=== PATIENT | female | born 1975 | race Caucasian/White ===

== ENCOUNTER 2017-12-28 16:34 | Emergency (ER) | payer OTHER ==
[~2017-12-28] VITALS: Ht 152.4 cm; Wt 88.9 kg
[2017-12-28 18:56] LABS: BASOPHIL % 0.5 % (0-2); PLATELET COUNT 273 x10^3mcL (130-400); RED CELL DISTRIBUTION WIDTH 13.8 % (11.5-14.5)
[2017-12-28 19:14] LABS: CALCIUM 8.8 mg/dL (8.5-10.1); CHLORIDE SERUM 103 mmol/L (98-107); CREATININE SERUM 0.9 mg/dL (0.6-1.0); GFR1 > 60 mL/min; GLUCOSE SERUM 93 mg/dL (74-106); POTASSIUM SERUM 3.7 mmol/L (3.5-5.1); SODIUM SERUM 136 mmol/L (136-145)
[2017-12-28 19:19] LABS: ALBUMIN 3.4 g/dL (3.4-5.0); ALKALINE PHOSPHATASE 88 U/L (46-116); ALT/SGPT 87 U/L (14-59); AST/SGOT 44 U/L (15-37); BILIRUBIN TOTAL 0.2 mg/dL (0.20-1.00); TOTAL PROTEIN, SERUM 7.2 g/dL (6.4-8.2)
[2017-12-28 20:06] VITALS: BP 124/80
== END 2017-12-28 20:06 | disposition home or self-care (01) ==
LOC: ED 16:34
PROVIDERS: Emergency Medicine
DX: J40 Bronchitis, not specified as acute or chronic (principal)
CPT/HCPCS: 36415; J2405; J7030; Q0092

== ENCOUNTER 2018-11-25 21:55 | Inpatient (IN) | payer OTHER ==
[~2018-11-25] VITALS: Ht 152.4 cm; Wt 95.3 kg
[2018-11-25 22:17] VITALS: Ht 152.4 cm; Wt 95.3 kg
[2018-11-25 22:58] LABS: BASOPHIL % 0.4 % (0-2); PLATELET COUNT 266 x10^3mcL (130-400)
[2018-11-25 23:07] LABS: CALCIUM 8.6 mg/dL (8.5-10.1); CREATININE SERUM 1.1 mg/dL (0.6-1.0); POTASSIUM SERUM 4.1 mmol/L (3.5-5.1)
[2018-11-25 23:11] LABS: BILIRUBIN TOTAL 0.2 mg/dL (0.20-1.00); TOTAL PROTEIN, SERUM 6.7 g/dL (6.4-8.2)
[2018-11-25 23:12] LABS: ALBUMIN 3.2 g/dL (3.4-5.0)
--- NOTE | 2018-11-25 23:15 | NUR ---
PT SITTING UP IN BED, NO S/S OF DISTRESS NOTED. PT C/O EPIGASTRIC PAIN X 1 DAY. PT RATES PAIN 8/10 AND RADIATES TO SIDES. PT DENIES PAIN ON PALPATION. PT REPORTS NAUSEA AND DENIES VOMITING AND DIARRHEA. EKG IN PROGRESS AT BEDSIDE. PT ATTACHED TO FULL SKIP MINER, NSR, VSS.
--- NOTE | 2018-11-26 00:20 | NUR ---
PT C/O PAIN, NOTIFED DR GUNTER. ORDERS FOR FENTANYL PLACED IN EMAR. MEDICATE PT PER MD ORDERS, PT VERBALIZED UNDERSTANDING OF MEDICATION. PT ON MONITOR. PT IS AAOX4, NO DISTRESS NOTED, RESP E/U, WILL CONT TO MONITOR.
[2018-11-26 00:21] LABS: CHOLESTEROL/HDL RATIO 5.7; MAGNESIUM 1.8 mg/dL (1.8-2.4); PHOSPHOROUS 4.1 mg/dL (2.5-4.9)
--- NOTE | 2018-11-26 00:56 | NUR ---
REPORT GIVEN TO RON MEJÍA TO ASSUME CARE OF PT.
[2018-11-26 01:35] VITALS: BP 110/69
--- NOTE | 2018-11-26 01:42 | NUR ---
RECEIVED PT FROM ER, PT ADMIT FOR GALLSTONE/PANCREATITIS. PT IS A/O X4, VERBAL RESPONSIVE, ABLE TO TELL WHAT SHE NEEDS. LUNG SOUND CLEAR BILATERAL, NO COUGH, NO SOB, PT DENY ANY CHEST PAIN OR DISCOMFORT, BOWEL SOUND PRESENT ALL 4 QUADRANTS, NO DISTENTION, NO TENDER. PT C/O MID ABD PAIN 6/10, AND C/O NAUSEA. PEDAL PULSE PRESENT BOTH FEET, NO EDEMA, IV AT LEFT HAND, NO LEAKING, NO INFILTRATION. ALL ADLS ASSIST, ALL NEED MET, CALL LIGHT IN REACH, WILL CONTINUE TO MONITOR.
[2018-11-26 06:08] VITALS: BP 106/59
[2018-11-26 06:31] LABS: BASOPHIL % 0.3 % (0-2); PLATELET COUNT 255 x10^3mcL (130-400); RED CELL DISTRIBUTION WIDTH 14.5 % (11.5-14.5)
--- NOTE | 2018-11-26 06:37 | NUR ---
PT. C/O HEADACHE AND ABD. PAIN. PAIN LEVEL WORST TO UPPER EPIGASTRIC REGION, 6-7/10 PT. STATED THAT SHE WAS UNSURE ABOUR IF HER HUNGER HAD ANYTHING TO DO WITH HER HEADACHE. PRN NORCO GIVEN. IVF INFUSING WELL. PT. RECEIVED PRN ZOFRAN FOR NAUSEA BEFORE RECEIVING NORCE. CALL LIGHT WITHIN REACH. WILL ENDORSE PT CARE TO INCOMING NURSE
[2018-11-26 06:45] LABS: CALCIUM 8.2 mg/dL (8.5-10.1); CHLORIDE SERUM 104 mmol/L (98-107); GFR1 > 60 mL/min; GLUCOSE SERUM 95 mg/dL (74-106); LIPASE 612 IU/L (73-393); SODIUM SERUM 138 mmol/L (136-145)
--- NOTE | 2018-11-26 07:56 | NUR ---
HANDOFF REPORT RECEIVED. PATIENT AWAKE IN BED WITH NS AT 150CC/HR INFUSING PERIPHERALLY. DENIES ANY PAIN AT THIS TIME AFTER THE NORCO. INSTRUCTED TO CALL FOR RN FOR ANY NEED. CALL FALK WITHIN REACH
--- NOTE | 2018-11-26 09:00 | NUR ---
GTUBE RESIDUAL 80CC. FEEDING HELD AND WILL RECHECK.
[2018-11-26 09:03] VITALS: BP 104/43; BP 107/50
--- NOTE | 2018-11-26 11:47 | NUR ---
DAUGHTER KIRA HERE AND AWARE OF POSSIBLE DISCHARGE. GTUBE RESIDUAL ZERO. HOB AT 50 DEGREES.
--- NOTE | 2018-11-26 11:50 | NUR ---
NAUSEOUS. ZOFRAN 4MG IVP GIVEN. DENIES ABDOMINAL PAINS.
--- NOTE | 2018-11-26 12:22 | NUR ---
STATES FEELING BETTER AFTER THE ZOFRAN.
--- NOTE | 2018-11-26 18:40 | NUR ---
PER MD HOWARD, PATIENT WILL GO FOR LAPAROSCOPIC CHOLECYSTECTOMY AT 0830 AND WILL SEE PATIENT TOMORROW BEFORE THEN. PATIENT MADE AWARE. NPO MAINTAINED.
--- NOTE | 2018-11-26 19:14 | NUR ---
HANDOFF REPORT GIVEN TO LAKSHMI DE LA TORRE.
--- NOTE | 2018-11-26 20:00 | NUR ---
RECEIVED PT IN BED, A/O X4. DENIES HEADACHE/DIZZINESS.RESP. EVEN AND UNLABORED. ON ROOM AIR, NO ACUTE DISTRESS NOTED. AFEBRILE AND VITAL SIGNS STABLE. ABD. SOFT , NON DISTENDED, BS ACTIVE, NO N/V NOTED. NPO ORDERED. IVF, NS AT 150ML/HR, INTACT AND INFUSING VIA LT HAND, SITE CLEAR . AMBULATORY. VOIDING FREELY. CALL LIGHT WITHIN REACH. WILL CONTINUE TO MONITOR.
[2018-11-26 20:11] VITALS: BP 109/73
--- NOTE | 2018-11-26 21:00 | NUR ---
COMPLAINED OF ABD. PAIN, 5/10, MEDICATED WITH NORCO PO ORDERED. WILL CONTINUE TO MONITOR.
--- NOTE | 2018-11-26 22:40 | NUR ---
RESTING QUIETLY. PT STATES PAIN RELIEF. WILL CONTINUE TO MONITOR.
--- NOTE | 2018-11-26 23:45 | NUR ---
RESTING IN BED WITH EYES CLOSED, APPEARS ASLEEP, EASILY AROUSABLE . NO ACUTE DISTRESS NOTED. WILL CONTINUE TO MONITOR.
--- NOTE | 2018-11-27 02:15 | NUR ---
SLEEPING QUIETLY, EASILY AROUSABLE. RESP. EVEN AND UNLABORED. NO ACUTE DISTRESS NTED. WILL CONTINUE TO MONITOR.
[2018-11-27 05:16] VITALS: BP 117/74
[2018-11-27 06:27] LABS: microscopic required? NO
--- NOTE | 2018-11-27 06:34 | NUR ---
AFEBRILE AND VITAL SIGNS STABLE. NPO EXCEPT MEDS MAINTAINED. IVF INTACT AND INFUSING WELL, SITE CLEAR. FOR SURG. TODAY, CONSENT OBTAINED FROM PT ORDERED.DANILO SKIN WASH DONE. KEPT COMFORTABLE. COMPLAINED OF NAUSEA,MEDICATED WITH NAUSEA. CALL LIGHT WTHIN REACH. WILL ENDORSE TO INCOMING NURSE.
--- NOTE | 2018-11-27 07:15 | NUR ---
RECEIVED PT IN BED A/A/OX4 DENIES RODRIGUEZ. RESP EVEN AND UNLABORED WITH CLEAR BS BILAT. DENIES ANY SOB/CP/PRESSURE AT THIS TIME. NO EDEMA NOTED WITH IVF NS AT 150ML/HR TO LT HAND. ABD SOFT, TENDER TO TOUCH TO UPPER ABD, WITH ACTIVE BS X4. DENIES ANY N/V AT THIS TIME. VOIDING FREELY. CALL LIGHT IN REACH NEEDS ATTENDED TO.
[2018-11-27 07:49] LABS: AMPHETAMINE QUAL UR NONE DETECTED (See below)
[2018-11-27 08:05] VITALS: BP 117/71
--- NOTE | 2018-11-27 08:20 | NUR ---
PT TAKEN DOWN TO OR FOR SCHEDULED PROCEDURE. PT LEFT FLOOR FREE OF ANY APPARENT DISTRESS.
[2018-11-27 09:48] LABS: urine erythrocyte NEGATIVE (NEGATIVE)
[2018-11-27 13:05] VITALS: BP 107/68
--- NOTE | 2018-11-27 13:05 | NUR ---
PT BACK FROM OR S/O LAP DICK. SX SITES X4, 2 WITH DERMABOND 2 WITH NIK AND BANDAIDS. DRSG CDI. PT WAS AWAKE A/OX4 ON ARRIVAL NAUSEATED FROM MOVEMENT IN [facility] [place]. BY THE TIME SHE WAS TRANSFER TO BED PT DENIED ANY FURTHER NAUSEA. PT DENIED ANY PAIN AT THIS TIME. ON O2 AT 3L/MIN VIA NC WITH O2 SAT 94%. VSS. PT ASSISTED ON TO BEDPAN AND HAD FIRST POSTOP VOID. PERICARE PROVIDED. ONCE PT WAS IN BED SHE BECAUSE MORE DROWSY BUT ARROUSABLE. CALL LIGHT REMAINED NEAR PT. BED IN LOW POSITION. RECONNECTED IVF PER EMAR.
--- NOTE | 2018-11-27 13:40 | NUR ---
PT RESTING WITH EYES CLOSED. RESP EVEN AND UNLABORED. REMAINS ON O2 AT 3L/MIN VIA NC. NO APPARENT DISTRESS OR DISCOMFORT.
[2018-11-27 18:04] VITALS: BP 110/72
--- NOTE | 2018-11-27 18:29 | NUR ---
PTR CONT WITH NAUSEA UNABLE TO TOLERATE FOOD. DR. ZULUAGA PAGED AWAITING CALL BACK TO REQUEST ANOTHER MEDICATION FOR NAUSEA AND PAIN.
--- NOTE | 2018-11-27 19:00 | NUR ---
SPOKE WITH ATTENDING DR. YATES MADE AWARE OF NAUSEA/VOMITING AND PAIN. MD ALSO NOTIFIED A ABD BINDER WAS PLACED AT PT'S REQUEST TO HELP SUPPORT ABD D/T NAUSEA/VOMITING. STATED SHE WILL ORDER NAUSEA AND PAIN MEDS.
--- NOTE | 2018-11-27 19:57 | NUR ---
PATIENT RECEIVED AWAKE, ALERT, ORIENTED X4 IN BED. RESPIRATION EVEN AND UNLABORED, ON O2 3L PER NASAL CANNULA. ONGOING 0.9% NS AT 80 CC/HR INFUSING WELL AT THE LEFT HAND. S/P LAP DICK 11/27/2018, SURGICAL INCISION X4- DERMABAND X2, BANDAID X2. DENIES PAIN AT THIS TIME. VOIDING FREELY WITHOUT DIFFICULTY. ON FULL LIQUID. WILL CONTINUE TO MONITOR.
[2018-11-27 21:08] VITALS: BP 122/73
--- NOTE | 2018-11-27 21:40 | NUR ---
PATIENT COMPLAINED OF NAUSEA AND INCISIONAL PAIN- ABDOMEN, PS 8/10. MEDICATED WITH ZOFRAN 4 MG IVP AND TORADOL 15 MG IVP ORDERED. WILL CONTINUE TO MONITOR.
--- NOTE | 2018-11-28 05:36 | NUR ---
PATIENT RESTING IN BED AT THIS TIME, RESPIRATION EVEN AND UNLABORED, ON HUMIDIFIED AIR AT 3L PER NASAL CANNULA. DENIES NAUSEA, PAIN AT THIS TIME. IV SITE TO LEFT HAND NO SIGN OF INFILTRATION. ON FULL LIQUID DIET. SURGICAL INCISION TO ABDOMEN DRY AND INTACT WITH ABDOMINAL BINDER IN PLACED. ASSISTED WITH NEEDS. SAFETY OBSERVED. PLACED BED IN THE LOWEST POSITION. PLACED CALL LIGHT WITHIN REACH AT ALL TIMES.
[2018-11-28 05:37] VITALS: BP 114/71
[2018-11-28 07:20] LABS: BASOPHIL % 0.3 % (0-2); PLATELET COUNT 239 x10^3mcL (130-400); RED CELL DISTRIBUTION WIDTH 14.2 % (11.5-14.5)
--- NOTE | 2018-11-28 07:20 | NUR ---
ASSUMED CARE OF PATIENT. SEEN RESTING THIS MORNING. RESPIRATIONS EQUAL AND UNLABORED, NO APPARENT DISTRESS NOTED. REMAINS ON 3L VIA NC. IV ON LH PATENT AND INUFSING 40ML/HR NS. WILL CONTINUE TO MONITOR.
[2018-11-28 07:33] LABS: CALCIUM 8.5 mg/dL (8.5-10.1); CARBON DIOXIDE 25.1 mmol/L (21-32); CHLORIDE SERUM 106 mmol/L (98-107); CREATININE SERUM 0.9 mg/dL (0.6-1.0); GFR1 > 60 mL/min; GLUCOSE SERUM 103 mg/dL (74-106); PHOSPHOROUS 2.9 mg/dL (2.5-4.9); POTASSIUM SERUM 3.8 mmol/L (3.5-5.1); SODIUM SERUM 140 mmol/L (136-145)
[2018-11-28 07:51] LABS: BILIRUBIN DIRECT 0.09 mg/dL (0.0-0.2); BILIRUBIN TOTAL 0.3 mg/dL (0.20-1.00); TOTAL PROTEIN, SERUM 6.3 g/dL (6.4-8.2)
[2018-11-28 08:03] LABS: ALBUMIN 2.8 g/dL (3.4-5.0)
[2018-11-28 09:15] VITALS: BP 110/71
--- NOTE | 2018-11-28 09:36 | NUR ---
PATIENT RESTING IN BED WITH COMPLAINTS OF MILD NAUSEA AND PAIN, BUT REFUSING MEDICATION AT THIS TIME. STATES SHE WANTS TO SEE IF THE NAUSEA AND PAIN WILL GO AWAY ON ITS OWN.
--- NOTE | 2018-11-28 12:11 | NUR ---
PATIENT SEEN RESTING IN BED WITH EQUAL AND UNLABORED RESPIRATIONS. ENDORSING PAIN BUT REFUSING PAIN MEDICATIONS. NO APPARENT DISTRESS NOTED.
--- NOTE | 2018-11-28 13:57 | NUR ---
PER ; D/C NS AND START D5 1/2NS AT 40ML/HR.
--- NOTE | 2018-11-28 14:22 | NUR ---
PATIENT COMPLAINING OF 7/10 ABDOMINAL PAIN, REFUSING MEDICATIONS FOR FEAR OF VOMITTING. ALSO REFUSING ANTI-EMETIC MEDICATIONS. PATIENT STATES SHE WILL "HOLD IT OFF," AND IS TOLERABLE. WAS ABLE TO EAT ABOUT 20% OF LUNCH WITH NO REPORTS OF NAUSEA AT THIS MOMENT.
--- NOTE | 2018-11-28 16:15 | NUR ---
PATIENT ENDORSING ABDOMINAL PAIN, CONTINUES TO REFUSE PAIN MEDICATION DUE TO FEAR OF THROWING UP.
[2018-11-28 16:58] VITALS: BP 130/70
--- NOTE | 2018-11-28 17:49 | NUR ---
PATIENT SEEN RESTING IN BED WITH EQUAL AND UNLABORED RESPIRATIONS. NO APPARENT DISTRESS NOTED. ON RA WITH SATURATIONS AT 94%. NO NEW ISSUES.
--- NOTE | 2018-11-28 18:40 | NUR ---
PATIENT IN ROOM WITH FAMILY AT BEDSIDE. NO COMPLAINTS OF PAIN OR DISCOMFORT. NO NAUSEA/VOMITTING. IV ON LH PATENT AND INFSUGIN D5 1/2NS AT 40 ML/HR. WILL ENDORSE CARE TO ONCOMING RN.
--- NOTE | 2018-11-28 19:38 | NUR ---
RECEIVED SITTING AT THE FOOT PART OF THE BED. AWAKE AND VERBALLY RESPONSIVE. ABLE TO MAKE NEEDS KNOWM. SURGICAL INCISSION X4, BANDAID X2. DERMABAND X2 SUPPORTED BY ABDOMINAL BINDER. PAIN LEVEL 0/10. FAMILY AT BEDSIDE VERY SUPPORTIVE OF PATIENT'S CARE. WILL CONTINUE TO MONITOR.
[2018-11-28 20:54] VITALS: BP 123/70
--- NOTE | 2018-11-29 00:01 | NUR ---
EYES CLOSED, APPARENTLY ASLEEP, AROUSABLE TO VERBAL STIMULI. RESPIRATION EVEN AND UNLABORED. CALL LIGHT [id number] REACH. BED IN LOWEST POSITION.
--- NOTE | 2018-11-29 01:48 | NUR ---
CONTINUES ON ATB IVPB WITHOUT ADVERSE REACTION NOTED. AMBULATED TO BATHROOM FOR BLADDER FUNCTION. KEPT CLEAN AND DRY.
[2018-11-29 05:39] VITALS: BP 102/68
--- NOTE | 2018-11-29 06:06 | NUR ---
PT C/O ABDOMINAL PAIN ON SCALE 3/10, OFFERED PAIN MEDICATION, REFUSED PT STATED GETS WORSE WITH PAIN MEDICATION, CAUSE HER NAUSEA/VOMITING. CONTINUWES ON IVF D5 AT 40ML/HR VIA PERIPHERAL LINE TOLERATING WELL.KEPT CLEAN AND DRY. ALLNEEDS ATTENDED.
[2018-11-29 06:40] LABS: BASOPHIL % 0.4 % (0-2); PLATELET COUNT 250 x10^3mcL (130-400); RED CELL DISTRIBUTION WIDTH 13.9 % (11.5-14.5)
--- NOTE | 2018-11-29 07:25 | NUR ---
REPORT RCD FROM ALFONZO GUILLEN. PATIENT REPORTS 10/10 PAIN TO ABDOMEN WITH NAUSEA WITHOUT VOMITING. DISCUSSED PAIN MANAGEMENT AND NAUSEA MANAGEMENT OPTIONS. PATIENT REFUSES ANY PAIN MED BECAUSE SHE STATES NAUSEA MEDICATIONS TO NOT WORK FOR HER AND SHE IS AFRAID OF THE PAIN FROM VOMITING. NO VOMITING AT THIS TIME. WILL MONITOR. D51/2NS INFUSING 40 ML/HR TO LEFT HAND WITHOUT COMPLICATIONS. SHIFT ASSESSMENT PERFORMED AND DOCUMENTED. BOWEL SOUNDS ACTIVE X4, ABD SOFT. PATIENT REPORTS PASSING GAS BUT NO BM. SURGICAL BANDAIDS X2 TO RIGHT ABDOMEN, CDI. SURGICAL INCISIONS CLOSED WITH DERMABOND BELOW NAVAL AND MID EPIGASTRIC AREA, ADMINISTRATIVE MEDICAL DIRECTOR, NO BLEEDING OR DRAINAGE NOTED. WILL MONITOR.
--- NOTE | 2018-11-29 08:20 | NUR ---
ASSISTED PATIENT TO BATHROOM, AMBULATORY, BUT PAIN WITH WALKING. REPORTS 8/10 PAIN, BUT CONTINUING TO REFUSE PAIN MEDICATIONS. CALLED FOOD AND NUTRITION PATIENT REQUESTING BLUEBERRY MUFFIN INSTEAD OF HER BREAKFAST, CALLED AND THEY WILL BRING. WILL MONITOR.
[2018-11-29 09:21] VITALS: BP 121/82
--- NOTE | 2018-11-29 09:33 | NUR ---
MEDICATIONS PER MAR. PATIENT REPORTS 8/10 PAIN, REFUSING ANY PAIN MED. ABLE TO TOLERATE A FEW BITES OF MUFFIN. PROVIDED WITH ADRIANNE WAHL AT HER REQUEST. WILL CONTINUE TO MONITOR.
[2018-11-29 10:38] LABS: CALCIUM 8.4 mg/dL (8.5-10.1); CARBON DIOXIDE 24.9 mmol/L (21-32); CHLORIDE SERUM 104 mmol/L (98-107); CREATININE SERUM 0.9 mg/dL (0.6-1.0); GFR1 > 60 mL/min; GLUCOSE SERUM 105 mg/dL (74-106); MAGNESIUM 1.7 mg/dL (1.8-2.4); PHOSPHOROUS 3.2 mg/dL (2.5-4.9); POTASSIUM SERUM 3.5 mmol/L (3.5-5.1); SODIUM SERUM 140 mmol/L (136-145)
--- NOTE | 2018-11-29 11:20 | NUR ---
PATIENT LYING IN BED SUPINE. REPORTS 8/10 ABDOMINAL PAIN, TOLERABLE, PREFERS NO PAIN MEDICATIONS. PATIENT REPORTS SHE IS DRINKING FLUIDS AND PASSING GAS, EATING SMALL OCCASIONAL BITES. REPORTS NO NEEDS AT THIS TIME. DISCUSSED PAIN CONTROL, NAUSEA CONTROL OPTIONS. PATIENT REFUSES.
[2018-11-29 12:17] LABS: BILIRUBIN DIRECT 0.08 mg/dL (0.0-0.2); BILIRUBIN TOTAL 0.22 mg/dL (0.20-1.00); TOTAL PROTEIN, SERUM 6.2 g/dL (6.4-8.2)
--- NOTE | 2018-11-29 12:50 | NUR ---
CALLED FOOD AND NUTRITION FOR PATIENT SHE IS NOT HAPPY WITH HER LUNCH. OFFERED HER SEVERAL OPTIONS. PATIENT REQUESTING TURKEY SANDWICH. FNS TO BRING.
--- NOTE | 2018-11-29 13:30 | NUR ---
PATIENT LYING IN BED, APPEARS COMFORTABLE. PATIENT EATING ONLY SMALL BITES OF FOOD, VERY LITTLE. REPORTS NAUSEA WITHOUT VOMITING, ABDOMINAL PAIN FOR WHICH SHE DOES NOT WANT MEDICATION. NO OTHER NEEDS AT THIS TIME. WILL MONITOR.
--- NOTE | 2018-11-29 15:18 | NUR ---
PATIENT AWAKE, ALERT, TALKING ON PHONE, NO DISTRESS NOTED. REPORTS NO NEEDS AT THIS TIME.
--- NOTE | 2018-11-29 15:33 | NUR ---
SPOKE WITH DR. ROJAS, GAVE HIM PATIENT'S LIVER FUNCTION TEST RESULTS. PER DR. Jerez, PATIENT MAY BE DISCHARGED IF SHE FEELS READY, BUT MAY STAY ANOTHER NIGHT IF SHE DOES NOT. SPOKE WITH THE PATIENT WHO PREFERS TO STAY ONE MORE NIGHT. PATIENT HAS EATEN HALF A SANDWICH, A PACK OF ADRIANNE CRACKERS, FRUIT FROM HER LUNCH TRAY AND IS TOLERATING REASONABLY WELL WITHOUT VOMITING, ALTHOUGH SHE DOES HAVE SOME NAUSEA. PATIENT CONTINUES TO REFUSE ANY PAIN OR NAUSEA MEDICATIONS. DISCUSSED IMPORTANCE OF INCENTIVE SPIROMETER USE 10X PER HOUR. PATIENT STATES SHE HAS BEEN USING I/S FREQUENTLY. ENCOURAGED DEEP BREATHS AND COUGHING. PATIENT AGREES.
[2018-11-29 17:06] VITALS: BP 138/78
--- NOTE | 2018-11-29 17:07 | NUR ---
PATIENT WITH VISITORS, TALKING, NO DISTRESS NOTED. DISCUSSED USING PILLOW TO SPLINT HER ABDOMEN TO MINIMIZE PAIN WITH COUGHING/SNEEZING. PATIENT DEMONSTRATED UNDERSTANDING. NO NEEDS AT THIS TIME.
--- NOTE | 2018-11-29 18:17 | NUR ---
PATIENT SITTING UP ON SIDE OF BED EATING DINNER, TOLERATING WELL. NO NEEDS AT THIS TIME. WILL MONITOR.
--- NOTE | 2018-11-29 19:22 | NUR ---
REPORT GIVEN TO ALFONZO SIMMS. PATIENT AWAKE, ALERT, NO DISTRESS. REPORTING PAIN AND NAUSEA WITHOUT VOMITING, BUT CONTINUING TO REFUSE PAIN MEDS OR NAUSEA MEDS OUT OF FEAR OF VOMITING. ATE MORE FOR DINNER, ABOUT 50%, TOLERATING. INCISIONS TO ABDOMEN BELOW NAVEL AND MID EPIGASTRIC WITH DERMABOND, NOLA, NO DRAINAGE OR BLEEDING NOTED. TWO SURGICAL BANDAIDS TO RIGHT ABDOMEN CDI. BINDER REPLACED. D51/2NS 40 ML/HR TO LEFT HAND WITHOUT COMPLICATIONS. BED LOW, CALL LIGHT WITHIN REACH. CARE ENDORSED.
--- NOTE | 2018-11-29 19:30 | NUR ---
RECIEVED PATIENT AT START OF SHIFT A/O X4. NO SOB ON RA, IS AT BEDSIDE. LUNGS CTAB. PATIENT REPORTS 5/10 PAIN BUT DOES NOT WANT ANY PAIN MEDICATION. SHE REPORTS PAIN MEIDCATION MAKES HER NAUSEOUS. ABDOMEN IS ROUND AND SOFT, 2 SURGICAL INCISIONS WELL APPROXIMATED WITH SUTURE NOLA, NO DRAINAGE OR ERYTHEMA NOTED. 2 SURGICAL INCISIONS COVERED WITH BANDAIDS CDI. BS ACTIVE. IV TO LH IS INFUSING WITHOUT ERYTHEMA OR INFILTRATION. BED LOCKED AND IN LOWEST POSITION. USE OF CALL LIGHT REINFIRCED, AND WITHIN REACH.
[2018-11-29 22:01] VITALS: BP 112/73
--- NOTE | 2018-11-30 01:35 | NUR ---
PATIENT'S EYES ARE CLOSED, BREATHS EVEN AND REGULAR. IV INFUSING WITHOUT ERYTHEMA OR INFILTERATION. CALL LIGTH WITHIN REACH.
[2018-11-30 05:21] VITALS: BP 113/70
--- NOTE | 2018-11-30 06:49 | NUR ---
PATIENT SLEPT WELL THROUGH THE NIGHT. PATIENT CONTINUES TO HAVE 5/10 PAIN BUT DOES NOT WANT PAIN MEDICATION. IV INFUSING WITHOUT ERYTHEMA OR INFILTRATION. INCISIONS ON ABDOMEN REMAIN CLEAN DRY AND INTACT. BS ARE ACTIVE BUT STILL NO BM POST PROCEDURE. BED LOCKED AND IN LOWEST POSIITON. CALL LIGHT AND BEDSIDE TABLE WITHIN REACH. WILL ENDORSE CARE TO MORNING NURSE.
--- NOTE | 2018-11-30 07:10 | NUR ---
RECEIVED PT FROM PORTAL DEVELOPER. PT AWAKE, ALERT A/OX4. PT ON RA WITH NO RESP DISTRESS NOTED. IV ACCESS LH C/D/I INFUSING D51/2NS AT 40 ML/HR. PT REPORTS PAIN TO ABDOMEN 12/15 BUT REFUSES PAIN MEDS AT THIS TIME. ACTIVE BS NOTED. PT REPORTS PASSING A LOT OF GAS. PT AMBULATORY. PT HAS ABDOMINAL BINDER. NO ACUTE DISTRESS NOTED AT THIS TIME. SAFETY MEASURES IN PLACE, BED LOW AND LOCKED. CALL LIGHT WITHIN REACH.
[2018-11-30 08:07] VITALS: BP 116/83
[2018-11-30] MEDS ORDERED: NORCO1 TA2 PO (08:51)
[2018-11-30 09:35] VITALS: BP 116/83
--- NOTE | 2018-11-30 09:45 | NUR ---
PT DISCHARGE INSTRUCTIONS/EDUCATION PROVIDED TO PATIENT. PT TO FOLLOW UP WITH PCP WITH APPT PROVIDED. PT HAD BM WITH SOME BLOOD NOTED TO STOOL. DR. HOWARD AND PATY Gould LIGHT BULB REPLACER AWARE. PT OK FOR DISCHARGE. IV ACCESS REMOVED WITH CATHETER INTACT. NO BLEEDING/SWELLING/REDNESS NOTED. PT TAKEN BY WHEELCHAIR TO [employer]IVATE [employer] FOR DISCHARGE.
== END 2018-11-30 09:58 | disposition home or self-care (01) | DRG 263 ==
LOC: ED 21:55 → MU 23:50
PROVIDERS: Emergency Medicine; General Practice; Surgery; ADMIT Internal Medicine
PROC: 0FT44ZZ Resection of Gallbladder, Percutaneous Endoscopic Approach (ICD-10-PCS; principal; 2018-11-27 08:30)
DX: K80.21 Calculus of gallbladder without cholecystitis with obstruction (principal); K85.10 Biliary acute pancreatitis without necrosis or infection; E44.0 Moderate protein-calorie malnutrition; E78.1 Pure hyperglyceridemia; F17.210 Nicotine dependence, cigarettes, uncomplicated; J45.909 Unspecified asthma, uncomplicated; Z68.41 Body mass index [BMI] 40.0-44.9, adult
CPT/HCPCS: 94150; G0378; J0330; J0690; J1170; J1885; J2250; J2270; J2405; J2704; J2710; J3010; J3490; J7030; J7120; J7620; Q0092

== ENCOUNTER 2019-01-12 19:38 | Emergency (ER) | payer OTHER ==
[~2019-01-12] VITALS: Ht 152.4 cm; Wt 91.6 kg
[~2019-01-12 19:38] MED LIST: NORCO1 TA2 PO
[2019-01-12 19:46] VITALS: Ht 152.4 cm; Wt 91.6 kg
[2019-01-12 22:51] VITALS: BP 120/86
== END 2019-01-12 22:51 | disposition home or self-care (01) ==
LOC: ED 19:38
DX: J06.9 Acute upper respiratory infection, unspecified (principal); J45.909 Unspecified asthma, uncomplicated

== ENCOUNTER 2019-03-03 18:47 | Emergency (ER) | payer OTHER ==
[~2019-03-03] VITALS: Ht 152.4 cm; Wt 91.2 kg
[2019-03-03 21:47] VITALS: BP 129/86
== END 2019-03-03 21:47 | disposition home or self-care (01) ==
LOC: ED 18:47
DX: S16.1XXA Strain of muscle, fascia and tendon at neck level, initial encounter (principal); S39.012A Strain of muscle, fascia and tendon of lower back, initial encounter; J45.909 Unspecified asthma, uncomplicated; Z98.890 Other specified postprocedural states; Z90.49 Acquired absence of other specified parts of digestive tract; V49.09XA Driver injured in collision with other motor vehicles in nontraffic accident, initial encounter; Y93.I9 Activity, other involving external motion; Y92.413 State road as the place of occurrence of the external cause; Y99.8 Other external cause status